=== PATIENT | female | born 1945 | race Caucasian/White ===

== ENCOUNTER 2019-12-07 01:10 | Observation (INO) | payer MEDICARE ==
[2019-12-07 03:37] VITALS: BMI 27.4
[2019-12-07] MEDS ORDERED: Guaifenesin DM 100-10/5 ML UDCUP PO PRN (03:58)
[2019-12-07] MEDS ORDERED: Ondansetron PF 4 MG/2 ML Vial IVP PRN (03:58)
[2019-12-07] MEDS ORDERED: Promethazine HCl 12.5 MG in Sodium Chloride 0.9% 50 ML IVPB PRN (03:58)
[2019-12-07] MEDS ORDERED: cloNIDine 0.1 MG TAB PO PRN (03:58)
[2019-12-07] MEDS ORDERED: HYDROcodone/Acetaminophen 5/325 mg Tablet PO PRN (03:58)
[2019-12-07] MEDS ORDERED: Labetalol HCl 100 MG/20 ML VIAL SLOW IVP PRN (03:58)
[2019-12-07] MEDS ORDERED: hydrALAZINE 20 MG/ML VIAL SLOW IVP PRN (03:58)
[2019-12-07] MEDS ORDERED: Dextrose 5% in Water 1,000 ML IV PRN (04:05)
[2019-12-07] MEDS ORDERED: HumaLOG 300 UNITS/3 ML VIAL SC PRN (04:05)
[2019-12-07] MEDS ORDERED: Dextrose 50% Abboject 50 ML SYRINGE SLOW IVP PRN (04:05)
--- NOTE | 2019-12-07 04:10 | PDOC.HHP ---
Hospitalist HPI - History of Present Illness Diaphoresis History of Present Illness: Patient is a 74 year old female with PMH T2DM, HTN, CAD w/ 2 stents who presents today as transfer from [facility] for diaphoresis, borderline increased troponin. Patient reports she developed about 30 minutes of severe diaphoresis and malaise today at 9-10pm, denies chest pain/SOB, it woke her up from sleep, her skin was clammy, this has not happened to her before, she didnt check blood sugar at the time but drove to ED where BP was high with sbp 180s. She has 2 stents placed 4 years ago, this was not similar to previous MIs. EKG in ED was afib rate [address] changes, she states afib is typical for her. she was given ASA, scientist propagator concerning for intermittent narrow complex tachycardia with short runs. patient transferred here on concern for diaphoresis as anginal equivalent. labs reviewed, hgb 10.9, cr 2.04, bun 33, glucose 77, tni 0.047, ast 116, alt 76. Hospitalist ROS - Review of Systems Constitutional: reports: chills, sweats, weakness, malaise. denies: fever, other Eyes: denies: pain, vision change, conjunctivae inflammation, eyelid inflammation, redness, other ENT: denies: ear pain, ear discharge, nose pain, nose discharge, nose congestion , mouth pain, mouth swelling, throat pain, throat swelling, other Respiratory: denies: cough, dry, shortness of breath, hemoptysis, SOB with excertion, pleuritic pain, sputum, wheezing, other Cardiovascular: denies: chest pain, palpitations, orthopnea, paroxysmal noc. dyspnea, edema, light headedness, other Gastrointestinal: denies: nausea, vomiting, abdominal pain, diarrhea, constipation, melena, hematochezia, other Genitourinary: denies: dysuria, frequency, incontinence, hematuria, retention, other Musculoskeletal: denies: neck pain, shoulder pain, arm pain, back pain, hand pain, leg pain, foot pain, other Skin: denies: rash, lesions, conor, bruising, other Neurological: denies: weakness, numbness, incoordination, change in speech, confusion, seizures, other All other systems reviewed; all pertinent +/- noted in HPI/Subj - Medication Medications: reviewed, see transfer documents for list Hospitalist History - Past Medical History Other Medical History: HTN DM CAD stents x 2 - Past Surgical History Other Surgical History: stents x 2 - Family History Family History: reports: no pertinent history - Social History Smoking Status: Never smoker Alcohol: reports: None Drugs: reports: none - Exam General Appearance: NAD, awake alert Eye: PERRL, anicteric sclera ENT: normocephalic atraumatic, no oropharyngeal lesions, moist mucosa Neck: supple, symmetric, no JVD, no thyromegaly, no lymphadenopathy, no carotid bruit Heart: no murmur, no gallops, no rubs, normal peripheral pulses, irregular. negative: murmur present Respiratory: CTAB, no wheezes, no rales, no ronchi, normal chest expansion, no tachypnea, normal percussion Gastrointestinal: soft, non-tender, non-distended, normal bowel sounds, no palpable masses, no hepatomegaly, no splenomegaly, no bruit Extremities: no cyanosis, no clubbing, no edema Skin: normal turgor, no lesions, no rashes Neurological: cranial nerve grossly intact, normal sensation to touch, no weakness, no focal deficits, no new deficit Musculoskeletal: normal tone, normal strength, no muscle wasting Psychiatric: normal affect, normal behavior, A&O x 3 Hospitalist Results - Labs Lab results: outside records reviewed VS @ 1:40 BP 182/62 pulse 72 RR 16 T 98.4 O2 95% on RA Additional comment: labs reviewed, hgb 10.9, cr 2.04, bun 33, glucose 77, tni 0.047, ast 116, alt 76. - EKG Interpretation EKG: afib rate [address] changes, PVC present Hospitalist H&P A/P - Plan Plan: Patient is a 74 year old female with PMH T2DM, HTN, CAD w/ 2 stents who presents today as transfer from [facility] for diaphoresis, borderline increased troponin. # diaphoresis # increased troponin # history of CAD and stents # history of DM, HTN unknown control - concern that her diaphoresis which woke her up is anginal equivalent, no chest pain or shortness of breath, other considerations include uncontrolled HTN with SBP in 180s, as well as hypoglycemia she has DM but does not take insulin and sugar was 77 at [facility] - admit to telemetry - trend cardiac enzymes - stress test ordered - consider cardiology consult if needed based on results - SSI ordered and PRN BP meds, monitor sugar and BP to determine need for changes to chronic medications - continue home meds and ASA, follow final med rec # renal insufficiency - unknown baseline, Cr 2 here, recheck and monitor for changes # DVT/GI ppx full code
[2019-12-07 04:30] LABS: #Eosinphils 0.2 thou/uL (0.0-0.7); #Lymphocytes 1.5 thou/uL (1.20-3.40); #Monocytes 0.4 thou/uL (0.11-0.59); #Neutrophils 7.6 thou/uL (1.40-6.50); %Basophils 0.2 % (0.0-1.0); %Eosinophils 2.4 % (0.0-10.0); %Lymphocytes 15.2 % (21.0-51.0); %Monocytes 4.1 % (0.0-10.0); %Neutrophils 78.1 % (42.0-75.0); Hemoglobin 10.7 g/dL (12.0-16.0); Mean Corpuscular HGB CONC 32.9 g/dL (32.0-36.0); Mean Corpuscular Hemoglobin 31.5 pg (27.0-31.0); Mean Corpuscular Volume 95.7 fL (78.0-98.0); Mean Platelet Volume 7.5 fL (7.4-10.4); Platelet Count 269 thou/uL (130-400); RBC Distribution Width 12.1 % (11.5-14.5); Red Blood Cell (RBC) Count 3.42 mill/uL (4.20-5.40); White Blood Cell (WBC) Count 9.7 thou/uL (4.8-10.8)
[2019-12-07 04:47] LABS: Anion Gap 15 mmol/L (10-20); BUN (Urea Nitrogen) 34 mg/dL (9.8-20.1); Calc. Creatinine Clearance 28 mL/min (70-130); Carbon Dioxide 22 mmol/L (23-31); Chloride 105 mmol/L (98-107); Estimated GFR-MDRD 25; Glucose 169 mg/dL (83-110); Magnesium 2.1 mg/dL (1.6-2.6); Potassium 4.4 mmol/L (3.5-5.1); Sodium 138 mmol/L (136-145)
[2019-12-07 04:53] LABS: Troponin I 0.045 ng/mL (< 0.028)
[2019-12-07] MEDS: Aspirin 325 MG TAB PO SCH (08:23)
[2019-12-07] MEDS: Famotidine 20 MG TAB PO SCH (08:24)
[2019-12-07] MEDS ORDERED: Furosemide 20 MG TAB PO SCH (09:00)
[2019-12-07] MEDS ORDERED: Lisinopril 20 MG TAB PO SCH (09:00)
[2019-12-07] MEDS ORDERED: Amlodipine 5 MG TAB PO SCH (09:00)
[2019-12-07] MEDS ORDERED: Non-Formulary Item 1 EACH (Carvedilol [Carvedilol] 12.5 MG) PO SCH (09:00)
[2019-12-07] MEDS ORDERED: Enoxaparin Sodium 40 MG/0.4 ML SYRINGE SC SCH (09:00)
[2019-12-07] MEDS ORDERED: ADENOSINE 60 MG/20 ML VIAL ONE (09:28)
[2019-12-07 10:42] LABS: Troponin I 0.047 ng/mL (< 0.028)
--- NOTE | 2019-12-07 13:57 | NM ---
Radionucleotide stress and rest myocardial perfusion scan with CT attenuation correction and SPECT im aging Left ventricular wall motion evaluation and ejection fraction HISTORY: Chest pain. FINDINGS: Adenosine protocol. Very heterogeneous uptake throughout the left ventricular myocardium on the stress and rest images. A large area of markedly diminished radiotracer uptake involves the inferior and lateral mcgregor on the stress and rest images without significant reversibility evident. QGS analysis of gated SPECT images show dyskinesis of the septum and global hypokinesis. Left ventricular ejection fraction calculated at 39 %. IMPRESSION : Large area of scar involving the inferolateral wall without evidence of ischemia. Depressed ejection fraction of 39% with dyskinetic motion of the septum.
--- NOTE | 2019-12-07 15:21 | PDOC.EVN ---
Event Note - Event Note Event Note: Patient's stress test reviewed. large area of previous scar, without current ischemic changes. Does have depressed ejection fraction. Asked Dr. Smiley to evaluate and determine if further workup needed. 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
[2019-12-07] MEDS ORDERED: Sodium Chloride 0.9% 1,000 ML IV SCH (16:30)
[2019-12-07] MEDS ORDERED: Communication Order-Pharmacy FS SCH (16:30)
[2019-12-07] MEDS: Sodium Chloride 0.9% 1,000 ML IV SCH (17:43)
[2019-12-07] MEDS: Acetaminophen 325 MG TAB PO PRN (20:29)
[2019-12-07] MEDS: Atorvastatin Calcium 10 MG TAB PO SCH (20:29)
[2019-12-07] MEDS ORDERED: Carvedilol 6.25 MG TAB PO SCH (21:00)
[2019-12-07] MEDS ORDERED: Prevnar 13-Val Conj/PF 0.5 ML SYRINGE IM ONE (21:00)
[2019-12-08 04:25] LABS: #Eosinphils 0.2 thou/uL (0.0-0.7); #Lymphocytes 2.1 thou/uL (1.20-3.40); #Monocytes 0.8 thou/uL (0.11-0.59); #Neutrophils 6.3 thou/uL (1.40-6.50); %Basophils 0.3 % (0.0-1.0); %Eosinophils 2.4 % (0.0-10.0); %Lymphocytes 21.9 % (21.0-51.0); %Monocytes 8.4 % (0.0-10.0); %Neutrophils 67.1 % (42.0-75.0); Mean Corpuscular HGB CONC 32.6 g/dL (32.0-36.0); Mean Corpuscular Hemoglobin 31.4 pg (27.0-31.0); Mean Corpuscular Volume 96.2 fL (78.0-98.0); Mean Platelet Volume 7.5 fL (7.4-10.4); Platelet Count 253 thou/uL (130-400); RBC Distribution Width 12.2 % (11.5-14.5); Red Blood Cell (RBC) Count 3.19 mill/uL (4.20-5.40); White Blood Cell (WBC) Count 9.4 thou/uL (4.8-10.8)
[2019-12-08 04:46] LABS: Anion Gap 13 mmol/L (10-20); BUN (Urea Nitrogen) 31 mg/dL (9.8-20.1); Calc. Creatinine Clearance 28 mL/min (70-130); Calcium 8.7 mg/dL (7.8-10.44); Carbon Dioxide 24 mmol/L (23-31); Chloride 109 mmol/L (98-107); Estimated GFR-MDRD 26; Glucose 114 mg/dL (83-110); Magnesium 2.1 mg/dL (1.6-2.6); Potassium 4.2 mmol/L (3.5-5.1); Sodium 142 mmol/L (136-145)
--- NOTE | 2019-12-08 06:54 | CON ---
DATE OF CONSULTATION: 12/07/2019 REASON FOR CONSULTATION: Coronary artery disease, has episode of diaphoresis, indeterminate troponin. HISTORY OF PRESENT ILLNESS: Ms. Kowalski is a 74-year-old woman with a long complicated cardiac history. She initially apparently had she says at least 1, if not 2 myocardial infarctions when she was visiting in [place] many years ago. She had stents placed in her right coronary and circumflex. Dr. Bianchi's notes at that time, indicated that the circumflex was stented with a 2.5 x 23 mm Cypher stent and the right coronary with a 2.25 x 18 mm stent. She presented here in 2009. took the patient to the medical lab director with chest tightness at rest as being the symptom. The patient had the LAD 50% lesion. No flow-limiting disease. However, circumflex 50% stenosis at the takeoff of a small 1st obtuse marginal artery and a 95% concentric stenosis just prior to the site of the prior stent. The right coronary is right dominant, was "essentially occluded" proximally. It was a total occlusion and it was difficult to cross, but ultimately was crossed successfully with Choice PT guidewire. Ultimately, a 3.5 x 12 mm PROMUS stent was deployed opposite the distal 80% lesion with good flow. After removal of this stent delivery, a 3.5 x 28 mm PROMUS was delivered at 9 atmospheres in the proximal occlusion. Attention was then shifted to the left coronary. XB 3.5 guiding catheter was used. A 3 mm x 28 mm PROMUS was deployed at 10 atmospheres. The patient tolerated this all well. The patient states she has been doing well. She has been following up with Dr. Renee at [facility]. The patient states she has not had any further interventions. She was brought to the emergency room on this occasion with episode of diaphoresis at rest. She is also hypertensive with blood pressure in the 180s. EKG revealed atrial fibrillation with a controlled ventricular response. She states she thinks she has been in atrial fibrillation for a prolonged time, but we do not have documentation of that. The patient was brought to the hospital, where she was found to have indeterminate troponin levels. Stress test today revealed a large inferolateral fixed defect. REVIEW OF SYSTEMS: CONSTITUTIONAL: No significant weight gain or loss. VISION: No changes. HEARING: No changes. PULMONARY: No cough or wheezing. GASTROINTESTINAL: No nausea, vomiting, or diarrhea. SKIN: No rashes. NEUROLOGIC: No unilateral weakness or numbness. PSYCHIATRIC: No unusual depression or anxiety. HEMATOLOGIC: No unusual bruising. GENITOURINARY: No burning with urination. MEDICATIONS: 1. Lisinopril 20 mg twice a day. 2. Coreg 6.25 mg twice a day. 3. Trulicity. 4. Glipizide. 5. Furosemide 20 mg apparently 3 days a week. 6. Pravastatin. ALLERGIES: NONE KNOWN. SOCIAL HISTORY: No alcohol or tobacco. PHYSICAL EXAMINATION: GENERAL: This is a somewhat frail-appearing 74-year-old woman, in no distress. VITAL SIGNS: Blood pressure 158/96, pulse is in the 60 to 70, atrial fibrillation. NECK: Neck veins are normal. Carotid with normal upstrokes. LUNGS: Clear. CARDIAC: Irregularly irregular. ABDOMEN: Soft, nontender. EXTREMITIES: Warm, dry. No clubbing or cyanosis. There is no edema. Pedal pulses are diminished, but she has good femoral pulses and popliteal pulses bilaterally. PERTINENT LABORATORY DATA: Creatinine is 1.95 with an estimated GFR of 24, stage 4 renal failure. The patient had a similar GFR in June of this year, but had a GFR of 55 in 2016. She said she is followed by a director of instrumental music at [facility]. EKG, atrial fibrillation with controlled ventricular response, old inferior infarct, premature ventricular contractions. ASSESSMENT AND PLAN: 1. Episodes of diaphoresis and indeterminate troponin, probably anginal equivalent. 2. Ejection fraction of 39% on nuclear medicine imaging. 3. Previous inferolateral infarctions. 4. Atrial fibrillation, suspect this is chronic. 5. Renal failure stage 4. At this time, I told the patient the only way to really be certain about her degree of how well she vascularizes is to do cardiac catheterization. I did discuss that the main risk of the catheterization will be renal failure (kidney failure), potentially even needing dialysis. This risk can be reduced if we are able to hydrate her well first. Records have been also requested from [facility]. Discussed cardiac catheterization risks, stroke, heart attack, iodine allergy, loss of blood supply to leg or kidney, stent thrombosis, stent restenosis. She understands and wished to proceed. Also, we will need to have addressed as an outpatient whether she would be a candidate for anticoagulation as she is not currently anticoagulated. We will hold beta shantelle now, the heart rate relatively low, reduce ASHELY inhibitor in view of the renal insufficiency, proceed to catheterization on Saturday to give time to hydrate the patient and see if she is going to improve renal function. Job ID: [id number]
--- NOTE | 2019-12-08 08:18 | PDOC.HOSPP ---
- Subjective Encounter Date: 12/08/19 Encounter Time: 11:00 Subjective: Patient without chest pain, shortness of breath, or further perspiration episodes. Awaiting cath which is now scheduled for tomorrow after hydration for her renal insufficiency. - Objective Vital Signs & Weight: Vital Signs (12 hours) Temp Pulse Resp BP BP Pulse Ox 12/08/19 07:14 97.7 F 81 17 161/75 H 93 L 12/08/19 03:16 98.0 F 81 20 146/87 H 93 L 12/08/19 00:00 174/107 H Weight Weight 151 lb 14.4 oz I&O: 12/07/19 12/08/19 12/09/19 06:59 06:59 06:59 Intake Total 0 1630 Output Total 450 750 Balance -450 880 Result Diagrams: 12/08/19 03:37 12/08/19 03:37 Additional Labs: Accuchecks 12/08/19 12/07/19 12/07/19 05:55 20:25 18:05 POC Glucose 124 H 127 H 127 H Hospitalist ROS - Review of Systems Constitutional: denies: fever, chills, sweats Respiratory: denies: cough, shortness of breath Cardiovascular: denies: chest pain, palpitations Gastrointestinal: denies: nausea, vomiting - Medication Medications: Active Medications Generic Name Dose Route Start Last Admin Trade Name Freq PRN Reason Stop Dose Admin Acetaminophen 650 mg 12/07/19 03:58 12/07/19 20:29 Tylenol PO 650 mg Q4H PRN Administration Headache/Fever/Mild Pain (1-3) Aspirin 325 mg 12/07/19 09:00 12/07/19 08:23 Aspirin PO 325 mg DAILY CLARISSA Administration Atorvastatin Calcium 10 mg 12/07/19 21:00 12/07/19 20:29 Lipitor PO 10 mg HS CLARISSA Administration Clonidine 0.1 mg 12/07/19 03:58 12/08/19 00:01 Catapres PO 0.1 mg BID PRN Administration SBP > 160 use second Famotidine 20 mg 12/07/19 09:00 12/07/19 08:24 Pepcid PO 20 mg DAILY CLARISSA Administration Hydralazine HCl 10 mg 12/07/19 03:58 12/07/19 20:29 Apresoline SLOW IVP 10 mg Q6H PRN Administration SBP GREATER THAN 160 Sodium Chloride 1,000 mls @ 70 mls/hr 12/07/19 16:41 12/07/19 17:43 Normal Saline 0.9% IV 1,000 mls .[id number] CLARISSA Administration - Exam General Appearance: NAD, awake alert ENT: moist mucosa Heart: RRR, no murmur, no gallops, no rubs Respiratory: CTAB, no wheezes, no rales, no ronchi Gastrointestinal: soft, non-tender, non-distended, normal bowel sounds Psychiatric: normal affect, normal behavior, A&O x 3 Hosp A/P (1) Angina at rest Code(s): I20.8 - OTHER FORMS OF ANGINA PECTORIS Status: Suspected (2) Coronary artery disease Code(s): I25.10 - ATHSCL HEART DISEASE OF [place] CORONARY ARTERY W/O ANG PCTRS Status: Chronic (3) Diabetes mellitus type 2 in nonobese Code(s): E11.9 - TYPE 2 DIABETES MELLITUS WITHOUT COMPLICATIONS Status: Chronic (4) Hypertension Code(s): I10 - ESSENTIAL (PRIMARY) HYPERTENSION Status: Chronic (5) Chronic renal failure, stage 3 (moderate) Code(s): N18.3 - CHRONIC KIDNEY DISEASE, STAGE 3 (MODERATE) Status: Chronic - Plan Plan for cardiac cath tomorrow as patient's diaphoresis episode is consistent with an anginal equivalent Receiving fluids for her kidneys prior to cath On ISS for diabetes DVT proph: SCD, Lovenox on hold for cath GI proph: Pepcid
[2019-12-08] MEDS: Aspirin 325 MG TAB PO SCH (08:33)
[2019-12-08] MEDS: Famotidine 20 MG TAB PO SCH (08:33)
[2019-12-08] MEDS: Lisinopril 20 MG TAB PO SCH (08:33)
[2019-12-08] MEDS: Sodium Chloride 0.9% 1,000 ML IV SCH ×3 (08:33→22:14)
[2019-12-08] MEDS: Amlodipine 10 MG TAB PO SCH (08:33)
[2019-12-08] MEDS: Acetaminophen 325 MG TAB PO PRN (08:36)
--- NOTE | 2019-12-08 10:03 | PRG ---
DATE OF SERVICE: 12/08/2019 SUBJECTIVE: Ms. Kowalski is a 74-year-old patient, seen yesterday as outlined in the chart. She has been doing well. No further chest pain. No further diaphoresis. OBJECTIVE: VITAL SIGNS: Blood pressure 160/70, pulse is 80. LUNGS: Clear. CARDIAC: Normal S1 and S2. ABDOMEN: She said she feels more distended due to the fluid. LABORATORY DATA: Creatinine is slightly improved to 1.92, essentially unchanged, however. ASSESSMENT: 1. Multivessel coronary artery disease. 2. Recent increased troponin level with episode of diaphoresis, likely anginal equivalent with indeterminate troponin. 3. Depressed left ventricular function. 4. Previous myocardial infarction. 5. Stage IV renal failure. PLAN: 1. She is getting hydrated with fluid. 2. Proceed to catheterization tomorrow. We discussed risk with her, stroke, heart attack, iodine allergy, loss of blood supply to leg or kidney, stent thrombosis, stent restenosis, renal failure. She understands and wished to proceed. Job ID: [id number]
[2019-12-08] MEDS: Atorvastatin Calcium 10 MG TAB PO SCH (19:47)
[2019-12-09 04:15] LABS: #Eosinphils 0.2 thou/uL (0.0-0.7); #Lymphocytes 1.7 thou/uL (1.20-3.40); #Monocytes 0.8 thou/uL (0.11-0.59); #Neutrophils 6.3 thou/uL (1.40-6.50); %Basophils 0.2 % (0.0-1.0); %Eosinophils 2.3 % (0.0-10.0); %Lymphocytes 18.7 % (21.0-51.0); %Monocytes 8.4 % (0.0-10.0); %Neutrophils 70.3 % (42.0-75.0); Hemoglobin 9.8 g/dL (12.0-16.0); Mean Corpuscular HGB CONC 34.1 g/dL (32.0-36.0); Mean Corpuscular Hemoglobin 32.8 pg (27.0-31.0); Mean Corpuscular Volume 96.1 fL (78.0-98.0); Mean Platelet Volume 7.3 fL (7.4-10.4); Platelet Count 230 thou/uL (130-400); RBC Distribution Width 12.2 % (11.5-14.5); Red Blood Cell (RBC) Count 2.99 mill/uL (4.20-5.40); White Blood Cell (WBC) Count 8.9 thou/uL (4.8-10.8)
[2019-12-09 04:35] LABS: Anion Gap 13 mmol/L (10-20); BUN (Urea Nitrogen) 26 mg/dL (9.8-20.1); Calc. Creatinine Clearance 32 mL/min (70-130); Calcium 8.4 mg/dL (7.8-10.44); Carbon Dioxide 22 mmol/L (23-31); Chloride 111 mmol/L (98-107); Estimated GFR-MDRD 30; Glucose 99 mg/dL (83-110); Magnesium 2.1 mg/dL (1.6-2.6); Potassium 3.7 mmol/L (3.5-5.1); Sodium 142 mmol/L (136-145)
[2019-12-09] MEDS: Lisinopril 20 MG TAB PO SCH (05:37)
[2019-12-09] MEDS: Aspirin 325 MG TAB PO SCH (05:37)
[2019-12-09] MEDS: Amlodipine 10 MG TAB PO SCH (05:37)
[2019-12-09] MEDS: Famotidine 20 MG TAB PO SCH (07:44)
[2019-12-09] MEDS ORDERED: Fentanyl 100 MCG/2 ML VIAL ONE (08:00)
[2019-12-09] MEDS ORDERED: Midazolam HCl 2 mg/2 ml Vial ONE (08:01)
[2019-12-09] MEDS ORDERED: Sodium Chloride 0.9% 200 ML IV PRN (08:58)
[2019-12-09] MEDS ORDERED: Acetaminophen/Codeine 30-300mg Tablet PO PRN ×2 (08:58)
[2019-12-09] MEDS ORDERED: Nitroglycerin 0.4 MG TAB (25 Tab Bottle) SL PRN (08:58)
[2019-12-09] MEDS ORDERED: Aspirin Chewable 81 MG TAB PO SCH (09:00)
[2019-12-09] MEDS ORDERED: Carvedilol 3.125 MG TAB PO SCH ×2 (09:00→17:00)
[2019-12-09] MEDS ORDERED: Iopamidol 370 76% 100 ML VIAL ONE (09:06)
[2019-12-09 16:49] VITALS: BP 128/59; TEMP 98
--- NOTE | 2019-12-09 18:04 | PRG ---
DATE OF SERVICE: 12/09/2019 Ms. Kowalski is doing well. She wishes to go home. The catheterization revealed stents in the circumflex and right coronary widely patent with no restenosis. Ejection fraction 40%. Long calcified 60% lesion in the mid LAD. Medical therapy appropriate at this time. She does have an iron deficiency anemia. Therefore, she has not been started on anticoagulation at this time. Apparently, she has had long-standing atrial fibrillation, has never been on anticoagulant. She has had some mild bradycardia. We will arrange for outpatient monitoring to be done and the patient may need a pacemaker at some time. Also, we will do an outpatient echo to look at the ejection fraction. If ejection fraction goes below 35%, then a defibrillator would be indicated. Ejection fraction today is 40%. It is okay with me to be released home. Currently, she is on Coreg 3.125 mg twice a day, rosuvastatin 20 mg a day, lisinopril 20 mg a day, aspirin 81 mg a day. Resume Lasix 20 mg a day starting tomorrow. Job ID: [id number]
--- NOTE | 2019-12-09 19:11 | DIS ---
DATE OF ADMISSION: 12/07/2019 DATE OF DISCHARGE: 12/09/2019 DISCHARGE DIAGNOSES: As of the followin. Coronary artery disease status post cardiac catheterization with no intervention. 2. Hypertension. 3. Type 2 diabetes. 4. Elevated troponin, most likely demand related. HOSPITAL COURSE: The patient is a 74-year-old female, who initially presented to the hospital for diaphoresis. At this time, given her history, she was put on anticoagulation and Cardiology was consulted. She underwent a cardiac catheterization, which indicated she had LAD proximal with 10% plaque, mid LAD 60%, circumflex stent was patent with 40% lesion to the distal to the stent. RCA stent was patent and it was indicated that she has atrial fibrillation. The patient at this time, no intervention was done. Medical therapy was appropriate. She had iron deficiency anemia. Therefore, no anticoagulation has been started at this point. She will have to follow up with her primary for workup of her anemia. Her iron levels were 23. I have notified this to the patient. The patient does have chronic kidney disease, appears to be stage 3. Recommend to recheck a BMP later on this week or next week. HOME MEDICATIONS: 1. Multivitamin. 2. Aspirin 81 mg daily. 3. Carvedilol 3.125 twice a day. 4. Pravastatin 40 mg at bedtime. 5. Lasix 20 mg daily. 6. Amlodipine 10 mg daily. 7. Glipizide 0.5 twice a day. 8. Lisinopril 20 mg daily. 9. Iron 150 daily. PHYSICAL EXAMINATION: VITAL SIGNS: On discharge, temperature of 98.0, 63, 16, 92% on room air, 128/59. GENERAL: She is awake, alert, and oriented x3. Does not appear in distress. CV: S1, S2 present. No murmurs, rubs, or gallops. ABDOMEN: Soft, nontender. Bowel sounds are present x2. She actually also had a stress test while she was in the hospital prior to her cardiac catheterization. Her stress test indicated depressed ejection fraction and dyskinetic movement of the septum and that is why she underwent a cardiac catheterization. I have asked her to follow up with her primary for workup for her anemia. She most likely will need to be on anticoagulation given her risk factors and greater risk for stroke. Her groin site on the right side appeared to be stable, good pedal pulses, and she will be discharged home. Job ID: [id number]
[2019-12-09] MEDS ORDERED: Rosuvastatin 20 MG TAB PO SCH (21:00)
[2019-12-10] MEDS ORDERED: Iron Polysaccharides Complex 150 MG CAP PO SCH (08:00)
[2019-12-10] MEDS ORDERED: Furosemide 20 MG TAB PO SCH (09:00)
== END 2019-12-09 19:36 | disposition home or self-care (01) ==
LOC: INTOOBSV 03:18 → 2NO 03:18
PROVIDERS: ADMIT Internal Medicine; ATTEND Internal Medicine
PROC: 4A023N7 Measurement of Cardiac Sampling and Pressure, Left Heart, Percutaneous Approach (ICD-10-PCS; principal; 2019-12-07)
PROC: B2111ZZ Fluoroscopy of Multiple Coronary Arteries using Low Osmolar Contrast (ICD-10-PCS; 2019-12-07)
DX: I25.10 Atherosclerotic heart disease of native coronary artery without angina pectoris (principal); I48.91 Unspecified atrial fibrillation; R79.89 Other specified abnormal findings of blood chemistry; I12.9 Hypertensive chronic kidney disease with stage 1 through stage 4 chronic kidney disease, or unspecified chronic kidney disease; E11.22 Type 2 diabetes mellitus with diabetic chronic kidney disease; N18.3 Chronic kidney disease, stage 3 (moderate); Z95.5 Presence of coronary angioplasty implant and graft; Z79.82 Long term (current) use of aspirin; Z79.84 Long term (current) use of oral hypoglycemic drugs; Z79.899 Other long term (current) drug therapy
CPT/HCPCS: 78452; 80048 ×3; 82728; 82962 ×3; 83540; 83735 ×3; 84484 ×2; 85025 ×3; 93017; 93458; 97139 ×5; A9500; 36415; 36416; 96374; G0378; J0153; J0360; J1644; J2250; J3010; Q9967